=== PATIENT | female | born 1980 | race Caucasian/White ===

== ENCOUNTER 2018-08-04 18:48 | Emergency (ER) | payer MEDICAID ==
[~2018-08-04] VITALS: Ht 167.6 cm; Wt 104.3 kg
[2018-08-04 18:58] VITALS: BP 144/95
--- NOTE | 2018-08-04 19:24 | NUR ---
PT AMBULATED TO BED 5.
--- NOTE | 2018-08-04 19:30 | NUR ---
PT BIB DAUGHTER C/O ABD PAIN. PT STATES SUDDEN ON SET OF LLQ ABD PAIN STARTED TODAY, PAIN IS 5/10 INTERMITTENT CRAMPING, RADIATES TO LEFT SIDE OF BACK; DENIES TRAUMA; -REBOUND TENDERNESS; +NAUSEA. PT TOOK MIDOL AT HOME W/O RELIEF. LMP: 06/12/18; +IUD. --BOWEL SOUNDS ACTIVE X4 QUAD. CHEST RISE AND FALL EQUAL AND UNLABORED. PT ACTING APPROPRIATLY. PT IN GOWN, IN BED; BED IN LOWER LOCKED POSITION. PENDING ER MD G[place]RIE. WILL CONTINUE TO MONITOR. PMH: ANXIETY RX: DENIES
[2018-08-04] MEDS ORDERED: ACETAMINOPHEN EXTRA STRENGTH 500 MG TAB PO ONE (20:20)
--- NOTE | 2018-08-04 20:27 | NUR ---
PT TO CT VIA WHEELCHAIR BY TECH.
[2018-08-04 20:37] LABS: APPEARANCE,URINE CLEAR (CLEAR); BILIRUBIN,URINE NEGATIVE (NEGATIVE); BLOOD, URINE NEGATIVE (NEGATIVE); COLOR,URINE YELLOW (YELLOW); LEUKOCYTE ESTERASE ,URINE NEGATIVE (NEGATIVE); NITRITE, URINE NEGATIVE (NEGATIVE); UGLUCOSE NEGATIVE (NEGATIVE)
[2018-08-04 20:52] LABS: BASOPHILS % (AUTO) 0.3 % (0.0-2.0); EOSINOPHILS # (AUTO) 0.1 K/uL (0-0.4); EOSINOPHILS % (AUTO) 1.2 % (0.0-4.0); HEMATOCRIT 39.4 % (36-48); HEMOGLOBIN 13.3 g/dL (12.0-16.0); LYMPHOCYTES # (AUTO) 2.2 K/uL (2.5-16.5); LYMPHOCYTES % (AUTO) 28.4 % (20.5-51.1); MEAN CORPUSCULAR HEMOGLOBIN 31 pg (27-31); MEAN CORPUSCULAR HGB CONC 34 g/dL (33-37); MEAN CORPUSCULAR VOLUME 90.5 fL (80-94); MONOCYTES # (AUTO) 0.6 K/uL (0.8-1.0); MONOCYTES % (AUTO) 8.2 % (1.7-9.3); NEUTROPHILS # (AUTO) 4.8 K/uL (1.8-7.7); NEUTROPHILS % (AUTO) 61.9 % (42.2-75.2); PLATELET COUNT (AUTO) 299 K/uL (140-450); RED BLOOD CELL COUNT(AUTO) 4.36 MIL/uL (4.20-5.40); RED CELL DISTRIBUTION WIDTH 12.6 % (11.6-13.7); WHITE BLOOD COUNT (AUTO) 7.8 K/uL (4.8-10.8)
[2018-08-04 21:08] LABS: ALBUMIN 3.7 g/dL (3.4-5.0); ANION GAP 10.1 (8-16); CARBON DIOXIDE 29.8 mmol/L (21-32); CREATININE 0.8 mg/dL (0.6-1.3); POTASSIUM 3.9 mmol/L (3.5-5.1); TOTAL BILIRUBIN 0.2 mg/dL (0.0-1.0)
--- NOTE | 2018-08-04 21:41 | NUR ---
Patient discharged with v/s stable. Pateint acting appropriatly, states she is feeling better and pain has decreased to 3/10 at this time. Written and verbal after care instructions given and explained. Patient alert, oriented and verbalized understanding of instructions. Ambulatory with steady gait. All questions addressed prior to discharge. ID band removed. Patient advised to follow up with PMD. Rx of Acetaminophen given. Patient educated on indication of medication including possible reaction and side effects. Opportunity to ask questions provided and answered.
[2018-08-04 21:46] VITALS: BP 135/97
== END 2018-08-04 21:41 | disposition home or self-care (01) ==
LOC: MED 18:48
DX: N83.202 Unspecified ovarian cyst, left side (principal); R19.7 Diarrhea, unspecified; R51 Headache; Z98.890 Other specified postprocedural states
CPT/HCPCS: 36415; 80053; 81003; 81025; 83690; 85025; 99284

== ENCOUNTER 2018-09-09 20:32 | Emergency (ER) | payer MEDICAID ==
[~2018-09-09] VITALS: Ht 167.6 cm; Wt 106.6 kg
[2018-09-09 21:10] VITALS: BP 160/101
--- NOTE | 2018-09-09 21:14 | NUR ---
PT AMBULATED TO LOBBY.
--- NOTE | 2018-09-09 22:26 | NUR ---
38/F BIB FAMILY, C/O 06/02 R EAR PAIN, X30 MINS. PT STATED THAT SHE STARTED FEELING WARMTH ON R EAR AND NOTICED REDNESS AND SWELLING. PT STATED THAT SWELLING HAS REDUCED SIGNIFICANTLY SINCE. REDNESS NOTED ON BL EARS. HX OVARIAN CYST, ECTOPIC , ANXIETY, BLOOD TRANSFUSION, , SHINGLES
[2018-09-09 23:08] VITALS: BP 133/89
--- NOTE | 2018-09-09 23:08 | NUR ---
DISCHARGE PAPERS GIVEN TO PT. RIGHT EAR EDEMA AND REDNESS REDUCED. 0/10 PAIN. NO SOB/DYSPNEA. RX OF BYNADRYL GIVEN. SIDE EFFECTS EXPLAINED. PT MEDICATED WITH BENADRYL AT DISCHARGE. PT STATES TAKING BENADRYL AND CONFIRMED NO MEDICATION ALLERGY. INSTRUCTED TO REMAIN IN LOBBY FOR 20 MIN BEFORE LEAVING. PT VERBALLIZED UNDERSTANDING OF DC INSTRUCTIONS. ALL QUESTIONS ANSWERED.
== END 2018-09-09 23:08 | disposition home or self-care (01) ==
LOC: MED 20:32
DX: R22.0 Localized swelling, mass and lump, head (principal); T50.8X5A Adverse effect of diagnostic agents, initial encounter; Y92.89 Other specified places as the place of occurrence of the external cause
CPT/HCPCS: 99282; Q0163

== ENCOUNTER 2019-04-26 02:23 | Emergency (ER) | payer MEDICAID ==
[~2019-04-26] VITALS: Ht 167.6 cm; Wt 108.9 kg
[2019-04-26 02:40] VITALS: BP 135/90
--- NOTE | 2019-04-26 02:43 | NUR ---
TO LOBBY A/W BED AMBULATORY
--- NOTE | 2019-04-26 02:43 | NUR ---
NASAL SWAB FOR INFLUENZA SENT TO LAB
--- NOTE | 2019-04-26 04:19 | NUR ---
PT AMBULATED TO BED 05
== END 2019-04-26 05:26 | disposition home or self-care (01) ==
LOC: MED 02:23
DX: B34.9 Viral infection, unspecified (principal); J45.909 Unspecified asthma, uncomplicated
CPT/HCPCS: 87804; 99283